=== PATIENT | male | born 1950 | race Caucasian/White ===

== ENCOUNTER → 2019-11-03 | Outpatient (CLI) | payer MEDICARE, OTHER ==
[~2019-11-03] MED LIST: ASCO-262 PO; CTRZ10T PO; MULT-608 PO; NFR150C PO; OMEP40CA36 PO
--- NOTE | 2019-11-03 17:04 | Diagnostic Imaging Report ---
PROCEDURE: MRI left upper extremity without contrast. TECHNIQUE: Multiplanar, multisequence non contrast-enhanced MRI of the left upper extremity was accomplished. INDICATION: Left shoulder pain from a fall three to four weeks ago. History of left shoulder surgery years ago. COMPARISON: None. FINDINGS: No acute fracture or dislocation is seen in the left shoulder. Alignment appears normal. No significant joint effusion is seen. The supraspinatus and infraspinatus tendons demonstrate low-grade partial-thickness tearing at the articular surface distally. No high-grade partial-thickness or full-thickness tears are seen. The teres minor tendon is intact. The subscapularis tendon demonstrates minimal fraying at the cranial fibers, but otherwise appears intact. The long head of the biceps tendon appears split proximally, which may be due to a variant bifid tendon versus a longitudinal split tear. The glenoid labrum is suboptimally evaluated without intra-articular contrast, although there does appear to be tearing superiorly and posteriorly, which may be degenerative. No significant paralabral cyst is seen. There are moderate degenerative changes in the acromioclavicular joint. The acromion has a curved undersurface without hooking. The coracoclavicular and coracoacromial ligaments are intact. No focal muscular atrophy is seen. The soft tissues about the left shoulder are otherwise unremarkable. IMPRESSION: 1. Low-grade partial-thickness tearing of the left rotator cuff with no high-grade partial-thickness or full-thickness tears seen. 2. Appearance of the long head of the biceps tendon may be due to variant bifid anatomy versus a longitudinal split tear. 3. Moderate degenerative changes in the acromioclavicular joint. Dictated by: Dictated on workstation # [id number]
== END ==
LOC: RAD 15:19
PROVIDERS: ATTEND Orthopaedic Surgery
DX: S46.011A Strain of muscle(s) and tendon(s) of the rotator cuff of right shoulder, initial encounter (principal); M19.011 Primary osteoarthritis, right shoulder; W19.XXXA Unspecified fall, initial encounter; Z98.890 Other specified postprocedural states
CPT/HCPCS: 73221

== ENCOUNTER 2020-04-27 07:51 | Inpatient (IN) | payer MEDICARE, OTHER ==
--- NOTE | 2020-04-18 09:40 | HISTORY AND PHYSICAL ---
DATE OF SERVICE: ADMISSION HISTORY AND PHYSICAL DATE OF ADMISSION: 04/27/2020. This will be for inpatient admission on 04/27/2020 for left total knee arthroplasty. The patient will require regular inpatient admission due to comorbidities, gait abnormalities, need for physical therapy and for pain management. HISTORY OF PRESENT ILLNESS: The patient is a 70-year-old gentleman, who has undergone two recent left knee arthroscopies and these have shown severe degenerative changes in his medial compartment with progressive loss of medial joint space and articular surface. He has undergone treatment with physical therapy as well as anti-inflammatories and multiple injections. He reports continued pain, swelling, stiffness and marked activity limitations in the knee. Radiographs revealed severe medial and patellofemoral arthrosis and due to functional impairment and failure to improve with conservative measures, the patient has elected to proceed with surgical intervention. REVIEW OF SYSTEMS: No chest pain, no shortness of breath and no dysuria. PAST MEDICAL HISTORY: Anemia, fatigue, reflux and hypertension. PAST SURGICAL HISTORY: Appendectomy, left shoulder arthroscopy and left knee arthroscopy. FAMILY HISTORY: Noncontributory. PRIMARY CARE PROVIDER: Dr. Baum. MEDICATIONS: Iferex, Cialis, tamsulosin, Meloxicam, omeprazole, sucralfate and lisinopril. ALLERGIES: No known drug allergies. SOCIAL HISTORY: The patient denies alcohol and tobacco use. PHYSICAL EXAMINATION: GENERAL: The patient is well-developed, well-nourished, in no acute distress. HEENT: Normocephalic and atraumatic. Pupils are equal, round and reactive to light. Oropharynx is clear. NECK: Supple, no lymphadenopathy. LUNGS: Clear to auscultation bilaterally. HEART: Regular rate and rhythm. ABDOMEN: Soft, nontender and nondistended. EXTREMITIES: Left knee demonstrates varus alignment. He has mild effusion. There is no erythema or warmth. He is markedly tender along his medial joint line, has pain with patellar loading. Range of motion 0/3/120. The patient ambulates with an antalgic gait. IMPRESSION: Severe left knee osteoarthritis, unresponsive to conservative measures. PLAN: Left total knee arthroplasty. Risks, benefits, options, ramifications and recovery were discussed at length with the patient. He understands and wishes to proceed. Job ID: [id number] DocumentID: [id number] Dictated Date: 04/18/2020 09:11:45 Millinery Worker Date: 04/18/2020 09:39:49 Dictated By: RACHEAL DYSON MD
[~2020-04-27] VITALS: Ht 172 cm; Wt 79.5 kg
[2020-04-27] VITALS (12 sets, daily range): BP systolic 120–156; BP diastolic 70–96
[~2020-04-27 07:51] MED LIST changes: +ASCO500C17 PO; +CHOL20003 PO; +FERR-84 PO; +LIDOCAINE PF 2% 5 ML (XYLOCAINE) VIAL ONE; +LISI10TA2 PO; +LORA10TA7 PO; +MELO15TA39 PO; +MIDAZOLAM 2 MG/2 ML (VERSED) VIAL ONE; +MULT-1136 PO; +OMEP20CA18 PO; +ROPIVACAINE 5MG/ML 30ML VIAL ONE; +ZINC50TA51 PO; +fentaNYL INJECTION 100 MCG/2 ML AMP ONE
[2020-04-27] MEDS ORDERED: CEFUROXIME INJECTION 1,500 MG in WATER (STERILE) FOR INJECTION 15 ML IV ONE (08:00)
[2020-04-27] MEDS ORDERED: INTRA-ARTICULAR IU ONE ×5 (08:00)
[2020-04-27] MEDS: LACTATED RINGERS 1,000 ML IV PRN ×2 (08:11→10:25)
[2020-04-27] MEDS ORDERED: LIDOCAINE PF 2% 5 ML (XYLOCAINE) VIAL ONE (08:32)
[2020-04-27] MEDS ORDERED: MIDAZOLAM 2 MG/2 ML (VERSED) VIAL ONE (08:32)
[2020-04-27] MEDS ORDERED: NEOSTIGMINE 3 MG/3 ML VIAL ONE (08:32)
[2020-04-27] MEDS ORDERED: proPOfol 200 MG/20 ML (DIPRIVAN) VIAL IV ONE (08:32)
[2020-04-27] MEDS ORDERED: ONDANSETRON 4 MG/2 ML (SDV) Z0FRAN ONE (08:32)
[2020-04-27] MEDS ORDERED: SEVOFLURANE (ULTANE) 15 ML INHAL SOLN ONE ×6 (08:32→10:48)
[2020-04-27] MEDS ORDERED: ROCURONIUM 10 MG/ML 5 ML SYRINGE IV ONE (08:32)
[2020-04-27] MEDS ORDERED: GLYCOPYRROLATE 0.2 MG/ML (ROBINUL) 2 ML VIAL ONE (08:32)
[2020-04-27] MEDS ORDERED: fentaNYL INJECTION 100 MCG/2 ML AMP ONE ×2 (08:33→10:25)
--- NOTE | 2020-04-27 09:12 | Progress Note-Pre Operative ---
Pre-Operative Progress Note H&P Reviewed The H&P was reviewed, patient examined and no changes noted. Date Seen by Provider: Apr 27, 2020 Time Seen by Provider: 07:25 Date H&P Reviewed: Apr 27, 2020 Time H&P Reviewed: 07:22 Pre-Operative Diagnosis: left knee primary osteoarthritis RACHEAL DYSON MD Apr 27, 2020 09:12
--- NOTE | 2020-04-27 09:14 | Progress Note-Post Operative ---
Post-Operative Progess Note Surgeon (s)/Implementation Coordinator (s) Surgeon RACHEAL DYSON MD Implementation Coordinator: Jordy Ibarra Pre-Operative Diagnosis left knee primary osteoarthritis Post-Operative Diagnosis left knee primary osteoarthritis Procedure & Operative Findings Date of Procedure 04/27/20 Procedure Performed/Findings left total knee arthroplasty Anesthesia Type GETA Estimated Blood Loss Estimated blood loss (mL): minimal Specimens/Packing Specimens Removed none Packing: none RACHEAL DYSON MD Apr 27, 2020 09:14
[2020-04-27] MEDS ORDERED: morphine PCA 100 MG/100 ML BAG IV PRN (09:15)
[2020-04-27] MEDS ORDERED: diphenhydrAMINE 50 MG/ML INJ (BENADRYL) IVP PRN (09:15)
[2020-04-27] MEDS ORDERED: ONDANSETRON 4 MG/2 ML (SDV) Z0FRAN IVP PRN ×3 (09:15→11:30)
--- NOTE | 2020-04-27 09:17 | D/C HH Face to Face Order ---
D/C Face to Face Orders Reconcile Patient Problems Problems Reviewed?: Yes Instructions for Patient [facility], Patient Instructions/FollowUp: three weeks Physician to follow Patient: three weeks Discharge Diet for Home: Regular Diet Patient Data-Allergies,Ht & Wt Patient Allergies: Coded Allergies: No Known Drug Allergies (Unverified , 04/14/20) Home Health Need/Face to Face Date of Face to Face: Apr 27, 2020 Clinical Findings: Instability, Muscle weakness, Pain with ambulation, Unsteady gait I have seen Pt [id number]: Yes Discharged To: Home Diagnosis/Conditions: left total knee arthroplasty Patient is Homebound due to: Ray fall risk due to instabilty, Muscle weakness, Pain w/ambulation Homebound Status Due to the above stated illness, injury or surgical procedure (medical condition or diagnosis) and associated clinical findings, the patient is homebound because of his/her inability to leave home except with aid of a supportive device and/or person AND leaving the home requires a considerable and taxing effort or is medically contraindicated. Pt req the following assistanc: Walker Home Health Nursing Orders Home Health Services Order: Physical Therapy-Evaluate & Treat DC knee tio and apply steri strips 05/11/20 Therapy Orders Therapy Orders: Physical Therapy, PT to assess for OT Therapy Specific Orders: Eval assistive deivces, Teach enviro modifications/safety, Gait training, Increase strength/endurance, Provider maintenance therapy, Restore ROM Certify Stmt I certify that this patient is under my care and that I, a nurse practitioner or a physician; a medical record assistant working with me, had a face to face encounter that - meets the physician face to face encounter requirements with this patient as dated. RACHEAL DYSON MD Apr 27, 2020 09:17
[2020-04-27] MEDS ORDERED: MEPERIDINE (DEMEROL) INJ 50 MG/ML IVP ONE (10:00)
[2020-04-27] MEDS ORDERED: morphine INJ 10 MG/ML 1ML (SYR OR VIAL) IVP ONE (10:00)
[2020-04-27] MEDS ORDERED: fentaNYL INJECTION 100 MCG/2 ML AMP IVP ONE (10:00)
[2020-04-27] MEDS ORDERED: HYDROmorphone 2 MG/ML VIAL (DILAUDID) IV ONE (11:30)
--- NOTE | 2020-04-27 12:11 | Diagnostic Imaging Report ---
INDICATION: Postoperative. TECHNIQUE: 2 post operative radiographs of the left knee CORRELATION STUDY: None FINDINGS: There are postsurgical changes of a total knee arthroplasty. Alignment is anatomic. Installed hardware appearing unremarkable. Overlying soft tissue gas collections and skin tio are present. IMPRESSION: Postsurgical changes of a left knee replacement. Dictated by: Dictated on workstation # [id number]
--- NOTE | 2020-04-27 12:22 | NUR ---
Patient arrived to floor at this time post L Total Knee. Bedside report received from PERLA Alberto. I agree with previous RN's assessment and will assume care at this time.
--- NOTE | 2020-04-27 12:49 | Progress Note ---
Standard Progress Note Progress Notes/Assess & Plan Date Seen by a Provider: Apr 27, 2020 Time Seen by a Provider: 11:30 Progress/Assessment & Plan post op check denies paresthesias radiographs--HW well positioned without fracture LLE--2 plus DP pulse with brisk cap refill. Intact sensation throughout to light touch. Intact DF and PF of toes and ankle s/p LTKA mobilize as able RACHEAL DYSON MD Apr 27, 2020 12:49
[2020-04-27] MEDS: NS IV 1000 ML 1,000 ML IV SCH (13:29)
--- NOTE | 2020-04-27 14:14 | Physical Therapy Evaluation ---
PT Evaluation-General Medical Diagnosis Admission Date Apr 27, 2020 at 07:51 Medical Diagnosis: left TKA Onset Date: Apr 27, 2020 Therapy Diagnosis Therapy Diagnosis: impaired mobility, ROM Precautions Precautions/Isolations: Standard Precautions Weight Bear Status Per Dr. Hobbs, patient should not flex left knee past 90 degrees Referral Physician: Fred Reason for Referral: Evaluation/Treatment Medical History Additional Medical History PAST MEDICAL HISTORY: Anemia, fatigue, reflux and hypertension. PAST SURGICAL HISTORY: Appendectomy, left shoulder arthroscopy and left knee arthroscopy. Reviewed History: Yes Social History Home: Single Level Current Living Status: Alone Entry Into Home: Stairs With Railing PT Steps Into Home: 6 Prior Prior Level of Function SCALE: Activities may be completed with or without assistive devices. 0-Ogwezpxxnt-mukbqev completes the activity by him/herself with no assistance from a helper. 5-Set-up or Clean-up Assistance-helper sets up or cleans up; patient completes activity. [place] assists only prior to or following the activity. 4-Supervision or Touching Assistance-helper provides verbal cues and/or touching/steadying and/or contact guard assistance as patient completes activity. Assistance may be provided throughout the activity or intermittently. 3-Partial/Moderate Assistance-helper does LESS THAN HALF the effort. [place] lifts, holds or supports trunk or limbs, but provides less than half the effort. 2-Substantial/Maximal Assistance-helper does MORE THAN HALF the effort. [place] lifts or holds trunk or limbs and provides more than half the effort. 8-Wjfjyrqgo-jblhiv does ALL the effort. Patient does none of the effort to complete the activity. Or, the assistance of 2 or more helpers is required for the patient to complete the activity. If activity was not attempted, code reason: 7-Patient Refused. 9-Not Applicable-not attempted and the patient did not perform the activity before the current illness, exacerbation or injury. 10-Not Attempted due to Environmental Limitations-(lack of equipment, weather restraints, etc.). 88-Not Attempted due to Medical Conditions or Safety Concerns. Bed Mobility: 6 Transfers (B,C,W/C): 6 Gait: 6 Stairs: 6 Indoor Mobility (Ambulation): Independent Stairs: Independent PT Evaluation-Current Subjective Patient in bed pre tx, agrees to PT, has 8/10 pain in left knee. Pt/Family Goals to be independent at home Objective Patient Orientation: Person, Place, Situation Attachments: Polar Pack, IV ROM/Strength ROM Lower Extremities Left knee flexion 80 degrees, extension +4 degrees Sensory Vision: Functional Hearing: Functional Sensation Right Lower Extremit: Intact Sensation Left Lower Extremity: Intact Transfers Roll Left to Right (QC): 6 Sit to Lying (QC): 3 Lying to Sitting/Side of Bed(Q: 4 Sit to Stand (QC): 4 Chair/Yua-tk-Cfktm Xfer(QC): 4 Patient performs bed mobility with independence, supine to sit with SBA, sit to supine with min assist, sit to stand CGA, transfers CGA Gait Does the Patient Walk?: Yes Mode of Locomotion: Walk Anticipated Mode of Locomotion: Walk Walk 10 feet (QC): 4 Distance: 30' Gait Assistive Device: FWW Comments/Gait Description Patient ambulated 30' with a rolling walker with CGA, no dizziness or nausea, decreased left knee flexion, antalgic, good step through Balance Sitting Static: Normal Sitting Dynamic: Normal Standing Static: Good Standing Dynamic: Good Treatment LLE supine total knee protocol x10 (AP, QS, HS, SAQ, SLR), CPM donned and adjusted to leg and set to 60/-2 Assessment/Needs Patient has impaired mobility, strength, endurance, ROM. Patient in bed post tx with nurse call, phone, tray, all needs met, CPM donned and polar care on. Rehab Potential: Fair PT Brick Off Bearer Goals Brick Off Bearer Goals PT Penitentiary Goals Time Frame: May 04, 2020 Roll Left & Right (QC): 6 Sit to Lying (QC): 6 Lying-Sitting on Side/Bed(QC): 6 Sit to Stand (QC): 4 Chair/Afl-ee-Ozpkz Xfer(QC): 4 Walk 10 feet (QC): 4 Walk 50ft with 2 Turns (QC): 4 Walk 150 ft (QC): 4 PT Plan Problem List Problem List: Activity Tolerance, Functional Strength, Safety, Balance, Gait, Transfer, Bed Mobility, ROM Treatment/Plan Treatment Plan: Continue Plan of Care Treatment Plan: Bed Mobility, Education, Functional Activity Shaista, Functional Strength, Gait, Safety, Therapeutic Exercise, Transfers Treatment Duration: May 04, 2020 Frequency: 11 times per week Estimated Hrs Per Day: .25 hour per day Patient and/or Family Agrees t: Yes Safety Risks/Education Patient Education: Gait Training, Transfer Techniques, Reviewed Use of Ice, Correct Positioning, Safety Issues Teaching Recipient: Patient Teaching Methods: Demonstration, Discussion Response to Teaching: Reinforcement Needed Discharge Recommendations Plan Patient will perform bed mobility and transfer training, balance and endurance training, functional strengthening, stair training, gait training, and education, to improve functional mobility and independence at home. Therapy Discharge Recommendati: Home & Family Time/GCodes Time In: 1335 Time Out: 1400 Total Billed Treatment Time: 25 Total Billed Treatment 1 visit EVL 10' FA 15' SMITA TALBOT PT Apr 27, 2020 14:14
--- NOTE | 2020-04-27 17:36 | NUR ---
Pt lives locally with his Lynne. His sons are both physicians and live out of state. His will be his primary caregiver. He will need physician order for front wheel walker and has chose [facility] for home l therapies.Will assist with continued care needs.
[2020-04-27] MEDS: CEFUROXIME INJECTION 750 MG in WATER (STERILE) FOR INJECTION 10 ML IV SCH (17:41)
--- NOTE | 2020-04-27 19:26 | OPERATIVE REPORT ---
DATE OF SERVICE: 04/27/2020 PREOPERATIVE DIAGNOSIS: Left knee primary osteoarthritis. POSTOPERATIVE DIAGNOSIS: Left knee primary osteoarthritis. PROCEDURE: Left total knee arthroplasty. SURGEON: Rolando Dyson MD HOLLOW HANDLE BENCH WORKER: Jordy Ibarra, who assisted throughout the procedure and closed the incision. ANESTHESIA: General endotracheal by Jordy Robertson CRNA. TOURNIQUET TIME: Approximately 75 minutes at 300 mmHg. ESTIMATED BLOOD LOSS: Minimal. DRAINS: None. COMPLICATIONS: None. POSTOPERATIVE PLAN: Routine total knee arthroplasty protocol. The patient was transferred to the recovery room awake and in stable condition. MATERIALS: MicroPort cemented size 5 femur, cemented size 5 tibia with 10 mm insert and cemented size 32 patellar button. STATEMENT OF MEDICAL NECESSITY: The patient is a 70-year-old gentleman with longstanding progressive left knee pain. He has undergone treatment with arthroscopies, injections, rest, activity modifications, anti-inflammatories without relief. He had progressive loss of medial joint space and patellofemoral joint spaces and due to functional impairment and failure to improve with conservative measures, the patient elected to proceed with surgical intervention. DESCRIPTION OF PROCEDURE: After risks and benefits of procedure were discussed and questions were answered, informed consent was signed and placed on chart, the operative site was confirmed in the preoperative holding area initialed by the surgeon. The patient was then transferred to the operating room and after adequate levels of general endotracheal anesthetic were obtained, a timeout was called, confirming the operative site. Left lower extremity was prepped and draped in the usual sterile fashion with the leg elevated and the knee flexed, tourniquet was inflated to 300 mmHg. Standard anterior approach was utilized. Hemostasis was obtained with cautery. Medial parapatellar arthrotomy was performed leaving 1 cm cuff on the patella for later reattachment. A portion of the fat pad was resected and subperiosteal release was performed on the proximal medial tibia being careful to stay on the bony surface. The ACL was resected. The intramedullary guide was passed into the femur. The distal cutting block was placed and the femur sized to a size 5, the 5 cutting block was placed parallel to the epicondylar axis and cuts were made from posterior to anterior. Subperiosteal release was then carefully performed on the posterior femur, being careful to stay on the bony surface with the knee flexed. The intramedullary guide was then passed into the tibia. The drop neena transected the intermalleolar axis. The cut was made. The 5 baseplate was placed and drop neena again transected the intermalleolar axis. the baseplate was pinned into position. This was prepared with the drill and keel punch. The femoral trial was placed and the trochlear cut was made. The patella was then prepared by resecting 10 mm off the undersurface using the freehand technique. There was calcification of the quadriceps insertion. This was excised, which left the quadriceps thin. Therefore, two drill holes were placed through the patella and sutures were placed in a [place] fashion through the proximal aspect of the quadriceps tendon. These were then passed through the patellar tunnels and tied distally at the finned quadriceps site. In addition, a mattress suture was passed full thickness into the retinaculum on the proximal patella. The trials were inserted with 10 mm insert. Full extension was easily obtained under 20 degrees of flexion with gravity was easily obtained. The patella tracked well. There was no anterior/posterior or medial/lateral laxity in flexion or extension. The trials were removed. The joint was irrigated with pulse lavage. The periarticular block was placed in the posterior capsule, medial and lateral retinaculum, extensor mechanism and subcutaneous tissues. The bone ends were irrigated and dried and the tibial baseplate was cemented into position. Excessive cement was removed, the superior surface was irrigated and dried and the polyethylene insert was placed. The distal femur was irrigated and dried and the femoral prosthesis was cemented into position. Excessive cement was removed. The knee was brought into full extension until cement had cured. The undersurface of patella was irrigated and dried. The patellar button was cemented into position. Excessive cement was removed. Once the cement had cured, the knee was taken through range of motion. The quadriceps was stable. The patella tracked well. There was no anterior/posterior laxity in flexion or extension or medial/lateral laxity in flexion or extension. Full extension was easily obtained, 120 degrees of flexion with gravity was easily obtained. The joint was further irrigated with pulse lavage. Arthrotomy was closed with #2 Tev[place] in lekezm-ti-xxwml fashion. The knee was flexed. The repair was stable with no undue tension at the repair site. Subcutaneous tissues were irrigated using a total of 6 liters throughout the procedure. 0 Vicryl was used to deep subcutaneous tissue, 2-0 Vicryl for the superficial subcutaneous tissue, tio used on the skin. A soft dressing was applied. Tourniquet was deflated. The patient was transferred to the recovery room awake and in stable condition. Job ID: [id number] DocumentID: [id number] Dictated Date: 04/27/2020 11:15:12 Embroidery Worker Date: 04/27/2020 19:26:15 Dictated By: ROLANDO DYSON MD
[2020-04-27] MEDS: SENNA W/DOCUSATE (SENOKOT S) TABLET PO SCH (21:04)
[2020-04-27] MEDS: oxyCODONE/APAP 5/325MG (PERCOCET 5) TABLET PO PRN (22:29)
[2020-04-28 00:28] VITALS: BP 145/72
[2020-04-28] MEDS: CEFUROXIME INJECTION 750 MG in WATER (STERILE) FOR INJECTION 10 ML IV SCH (00:34)
[2020-04-28] MEDS: ACETAMINOPHEN 325 MG TABLET PO PRN ×2 (00:34→19:47)
[2020-04-28] MEDS: NS IV 1000 ML 1,000 ML IV SCH ×3 (00:37→13:09)
[2020-04-28 05:44] LABS: HEMOGLOBIN 11.7 g/dL (13.3-17.7)
--- NOTE | 2020-04-28 07:10 | Anesthesia-General Post-Op ---
General Patient Condition Mental Status/LOC: Same as Preop Cardiovascular: Satisfactory Nausea/Vomiting: Absent Respiratory: Satisfactory Pain: Controlled Complications: Absent Post Op Complications Complications None Follow Up Care/Instructions Patient Instructions None needed. Anesthesia/Patient Condition Patient Condition Patient is doing well, no complaints, stable vital signs, no apparent adverse anesthesia problems. No complications reported per nursing. JOHANNA GARRISON CRNA Apr 28, 2020 07:10
[2020-04-28 08:00] VITALS: BP 120/61
[2020-04-28] MEDS: MULTIVIT W/MINERALS TAB (THERAGRAN M) PO SCH (08:01)
--- NOTE | 2020-04-28 08:10 | Progress Note ---
Standard Progress Note Progress Notes/Assess & Plan Date Seen by a Provider: Apr 28, 2020 Time Seen by a Provider: 08:09 Progress/Assessment & Plan post op check denies paresthesias radiographs--HW well positioned without fracture LLE--2 plus DP pulse with brisk cap refill. Intact sensation throughout to light touch. Intact DF and PF of toes and ankle s/p LTKA mobilize as able Final Diagnosis having pain Vital Signs Date Time Temp Pulse Resp B/P (MAP) Pulse Ox O2 Delivery O2 Flow Rate FiO2 04/28/20 01:04 37.0 04/28/20 00:34 37.9 04/28/20 00:28 37.9 104 20 145/72 (96) 94 Room Air 04/27/20 21:10 Room Air 04/27/20 20:00 36.5 102 16 128/71 (90) 91 Room Air 04/27/20 16:00 36.3 104 16 147/78 (101) 95 Room Air 04/27/20 13:31 18 04/27/20 12:20 37.1 20 136/82 (100) 98 Room Air 04/27/20 12:20 Room Air 04/27/20 12:19 36.1 94 16 120/70 (87) 96 Room Air 04/27/20 12:10 Room Air 04/27/20 12:10 37.1 20 136/82 (100) 98 Room Air 04/27/20 12:00 21 135/83 (100) 97 Room Air 04/27/20 11:55 Room Air 04/27/20 11:50 14 143/79 (100) 100 Room Air 04/27/20 11:40 OxyMask 2 04/27/20 11:40 18 136/82 (100) 100 OxyMask 2 04/27/20 11:30 20 153/81 (105) 99 OxyMask 5 04/27/20 11:25 OxyMask 5 04/27/20 11:20 16 149/96 (113) 100 OxyMask 5 04/27/20 11:11 36.2 14 156/74 (101) 100 OxyMask 8 04/27/20 11:11 OxyMask 8 I & O 04/28/20 07:00 Intake Total 1655 ml Output Total 480 ml Balance 1175 ml Laboratory Tests Test 04/27/20 16:42 04/28/20 05:16 Range/Units Glucometer 143 H 70-110 MG/DL Creatinine 0.86 0.60-1.30 MG/DL LLE--dressing intact. No calf tenderness. NVI s/p LTKA mobilize with PT/OT RACHEAL DYSON MD Apr 28, 2020 08:09
[2020-04-28] MEDS: ASPIRIN E.C. 81 MG (ECOTRIN) TAB PO SCH (08:52)
[2020-04-28] MEDS: ENOXAPARIN 30 MG/0.3 ML (LOVENOX) SYR SC SCH ×2 (08:53→19:56)
[2020-04-28] MEDS: SENNA W/DOCUSATE (SENOKOT S) TABLET PO SCH ×2 (08:53→19:56)
[2020-04-28] MEDS: oxyCODONE/APAP 5/325MG (PERCOCET 5) TABLET PO PRN ×3 (08:56→19:46)
--- NOTE | 2020-04-28 10:17 | Occupational Therapy Eval ---
OT Evaluation-General/PLF Medical Diagnosis Admission Date Apr 27, 2020 at 07:51 Medical Diagnosis: left TKA Onset Date: Apr 27, 2020 Therapy Diagnosis Therapy Diagnosis: Decreased ADL skills Precautions Precautions/Isolations: Fall Prevention, Standard Precautions Weight Bear Status Weight Bearing Restriction: Weight Bearing/Tolerated Referral Physician: jonathon Referral Reason: Activity Tolerance, Self Care, Evaluation/Treatment, Strengthening/ROM Medical History Pertinent Medical History: HTN Additional Medical History Anemia, refluz, appendectomy, left shoulder arthroscopy Reviewed History: Yes Social History Home: Single Level Current Living Status: Spouse Entry Into Home: Stairs With Railing Steps Into Home: 6 ADL-Prior Level of Function SCALE: Activities may be completed with or without assistive devices. 8-Ewynrgdiho-kiyxeku completes the activity by him/herself with no assistance from a helper. 5-Set-up or Clean-up Assistance-helper sets up or cleans up; patient completes activity. [place] assists only prior to or following the activity. 4-Supervision or Touching Assistance-helper provides verbal cues and/or touching/steadying and/or contact guard assistance as patient completes activity. Assistance may be provided throughout the activity or intermittently. 3-Partial/Moderate Assistance-helper does LESS THAN HALF the effort. [place] lifts, holds or supports trunk or limbs, but provides less than half the effort. 2-Substantial/Maximal Assistance-helper does MORE THAN HALF the effort. [place] lifts or holds trunk or limbs and provides more than half the effort. 4-Pomwgsjdl-xquptx does ALL the effort. Patient does none of the effort to complete the activity. Or, the assistance of 2 or more helpers is required for the patient to complete the activity. If activity was not attempted, code reason: 7-Patient Refused. 9-Not Applicable-not attempted and the patient did not perform the activity before the current illness, exacerbation or injury. 10-Not Attempted due to Environmental Limitations-(lack of equipment, weather restraints, etc.). 88-Not Attempted due to Medical Conditions or Safety Concerns. ADL PLOF Comments Pt. verbalizes that he is independent typically with all ADLs. Self Care: Independent Functional Cognition: Independent DME/Equipment Comments Pt. verbalizes that he has no AE at home, including a walker. Drive Self: Yes OT Current Status Subjective Pt. begins to report feeling faint while ambulating, as well as reports significant pain in left knee. 03/05. Nursing notified. BP is taken and pain meds are given. Mental Status/Objective Patient Orientation: Person, Place ADL-Treatment Shower/Bathe Self (QC): 3 (Pt. had just completed sponge bath in bathroom after set up from nursing when OT entered room. However, he was not able to wash LE. OT did this for him at bed level.) Lower Body Dressing (QC): 5 On/Off Footwear (QC): 2 (OT donned CARMEN hose and SCD's while in bed. Clinical judgement indicates that pt. unable to don slipper socks due to pain.) Other Treatments Pt. in bathroom when OT entered room. Opens door and is ambulating with walker back to bed. OT provides SBA, and pt. begins reporting significant pain in left knee. He also reports feeling "faint" and so OT calls for nurse and assists pt. to bed. Pt. requires mod assistance for sit-supine. BP taken and is 105/57. Nursing requests for HOB to not be elevated due to BP. Pt. given pain medication. OT applies CARMEN hose at bed level but pt. yelling out in pain with any movement. OT careful and encourages pt. to look at leg while hose is being applied, so he can anticipate movements. OT applies SCDs and attempts to position left LE to best comfort level. Pt. unable to get comfortable, and so after leaving, PT is consulted as they are going to assess him next. They are notified as well about polar pack. Pt. has all needs met, and OT will continue to assess and work with pt. to increase ADL skills and decrease pain during functional tasks. Education OT Patient Education: Correct positioning, Modified ADL techniques, Progress to norman Goal/Update tx plan, Purpose of tx/functional activities, Reviewed precautions, Rehab process, Transfer techniques Teaching Recipient: Patient Teaching Methods: Demonstration, Discussion Response to Teaching: Verbalize Understanding, Return Demonstration OT [facility]ci Goals Shift Stacker Goals Time Frame: May 05, 2020 Eating (QC): 6 Oral Hygiene (QC): 6 Toileting Hygiene (QC): 6 Shower/Bathe Self (QC): 5 Upper Body Dressing (QC): 6 Lower Body Dressing (QC): 6 On/Off Footwear (QC): 6 Additional Goals: 1-Demonstrate ADL Tasks, 2-Verbalize Understanding, 3- ImproveStrength/Shaista 1=Demonstrate adherence to instructed precautions during ADL tasks. 2=Patient will verbalize/demonstrate understanding of assistive devices/modifications for ADL. 3=Patient will improve strength/tolerance for activity to enable patient to perform ADL's. OT Education/Plan Problem List/Assessment Assessment: Decreased Activ Tolerance, Dependent Transfers, Impaired Bed Mobility, Impaired Funct Balance, Impaired I ADL's, Impaired Self-Care Skills Discharge Recommendations Plan/Recommendations: Continue POC Therapy Discharge Recommendati: Home & Family Equpiment Recommendations-D/C: Hip Kit Treatment Plan/Plan of Care Treatment,Training & Education: Yes Patient would benefit from OT for education, treatment and training to promote independence in ADL's, mobility, safety and/or upper extremity function for ADL's. Plan of Care: ADL Retraining, Functional Mobility Treatment Duration: May 05, 2020 Frequency: 5 times per week Estimated Hrs Per Day: .5 hour per day Agreement: Yes Rehab Potential: Fair Time/GCodes Start Time: 08:35 Stop Time: 09:00 Total Time Billed (hr/min): 25 Billed Treatment Time 1, EVM x 10minutes, ADL x 15minutes LUDY EDWARDS OT Apr 28, 2020 10:17
--- NOTE | 2020-04-28 10:41 | Physical Therapy Daily Note ---
PT Daily Note-Current Subjective Patient c/o 10/10 left knee pain but agrees to PT. Pain Numeric Pain Scale: 10-Worst Possible Pain Location: Left Location Body Site: Knee Pain Description: Acute Comment: FOOD CASHIER and pain pill Mental Status Patient Orientation: Normal For Age Attachments: IV Transfers SCALE: Activities may be completed with or without assistive devices. 1-Evvnkjystw-hcaeolc completes the activity by him/herself with no assistance from a helper. 5-Set-up or Clean-up Assistance-helper sets up or cleans up; patient completes activity. [place] assists only prior to or following the activity. 4-Supervision or Touching Assistance-helper provides verbal cues and/or touching/steadying and/or contact guard assistance as patient completes activity. Assistance may be provided throughout the activity or intermittently. 3-Partial/Moderate Assistance-helper does LESS THAN HALF the effort. [place] lifts, holds or supports trunk or limbs, but provides less than half the effort. 2-Substantial/Maximal Assistance-helper does MORE THAN HALF the effort. [place] lifts or holds trunk or limbs and provides more than half the effort. 4-Ohtouyltn-wwcuzp does ALL the effort. Patient does none of the effort to complete the activity. Or, the assistance of 2 or more helpers is required for the patient to complete the activity. If activity was not attempted, code reason: 7-Patient Refused. 9-Not Applicable-not attempted and the patient did not perform the activity before the current illness, exacerbation or injury. 10-Not Attempted due to Environmental Limitations-(lack of equipment, weather restraints, etc.). 88-Not Attempted due to Medical Conditions or Safety Concerns. Lying to Sitting/Side of Bed(Q: 3 Sit to Stand (QC): 4 Chair/Acm-ti-Pcxuz Xfer(QC): [address] Hobbs, patient should not flex left knee past 90 degrees Gait Training Does the Patient Walk?: Yes Distance: 300' Walk 10 feet (QC): 4 Walk 50 ft with 2 Turns(QC): 4 Walk 150 ft (QC): 4 Gait Assistive Device: FWW slow, steady, antalgic Exercises Supine Ex: Ankle pumps, Quad Set, Heel Slides (slight) Supine Reps: 12 Seated Therapy Exercises: Ankle pumps, Long arc quads Seated Reps: 12 Assessment PT did lightly massage left LE to decrease pain. Patient able to perform all skills as above without difficulty. PT Senior Living Goals Senior Living Goals PT Siderographist Goals Time Frame: May 04, 2020 Roll Left & Right (QC): 6 Sit to Lying (QC): 6 Lying-Sitting on Side/Bed(QC): 6 Sit to Stand (QC): 4 Chair/Hqq-dw-Jgsta Xfer(QC): 4 Walk 10 feet (QC): 4 Walk 50ft with 2 Turns (QC): 4 Walk 150 ft (QC): 4 PT Plan Treatment/Plan Treatment Plan: Continue Plan of Care Treatment Plan: Bed Mobility, Education, Functional Activity Shaista, Functional Strength, Gait, Safety, Therapeutic Exercise, Transfers Treatment Duration: May 04, 2020 Frequency: 11 times per week Estimated Hrs Per Day: .25 hour per day Patient and/or Family Agrees t: Yes Time/GCodes Time In: 906 Time Out: 940 Total Billed Treatment Time: 34 Total Billed Treatment 1 visit EX 19 min GT 15 min ARMAAN YANCEY PT Apr 28, 2020 10:41
[2020-04-28 12:00] VITALS: BP 121/68
[2020-04-28] MEDS ORDERED: CYCLOBENZAPRINE 10 MG (FLEXERIL) TAB PO PRN (14:00)
--- NOTE | 2020-04-28 14:27 | Physical Therapy Daily Note ---
PT Daily Note-Current Subjective Patient reports he ambulated with nursing staff 30 min. prior to PT arrival. Agrees to exercises. Transfers SCALE: Activities may be completed with or without assistive devices. 8-Nacedztmev-knzmdpg completes the activity by him/herself with no assistance from a helper. 5-Set-up or Clean-up Assistance-helper sets up or cleans up; patient completes activity. [place] assists only prior to or following the activity. 4-Supervision or Touching Assistance-helper provides verbal cues and/or touching/steadying and/or contact guard assistance as patient completes activity. Assistance may be provided throughout the activity or intermittently. 3-Partial/Moderate Assistance-helper does LESS THAN HALF the effort. [place] lifts, holds or supports trunk or limbs, but provides less than half the effort. 2-Substantial/Maximal Assistance-helper does MORE THAN HALF the effort. [place] lifts or holds trunk or limbs and provides more than half the effort. 2-Etzbvrppt-ugkwjh does ALL the effort. Patient does none of the effort to complete the activity. Or, the assistance of 2 or more helpers is required for the patient to complete the activity. If activity was not attempted, code reason: 7-Patient Refused. 9-Not Applicable-not attempted and the patient did not perform the activity before the current illness, exacerbation or injury. 10-Not Attempted due to Environmental Limitations-(lack of equipment, weather restraints, etc.). 88-Not Attempted due to Medical Conditions or Safety Concerns. Sit to Lying (QC): 3 Sit to Stand (QC): 5 Chair/Hov-yu-Uwmyq Xfer(QC): [address] Hobbs, patient should not flex left knee past 90 degrees Gait Training Does the Patient Walk?: Yes Distance: 8' Gait Assistive Device: FWW Exercises Supine Ex: Ankle pumps, Quad Set, Heel Slides, Straight leg raise Supine Reps: 12 Assessment CPM 0-50 degrees with polar pack in place. Patient tolerated treatment well. PT Exploration Driller Goals Fpc Goals PT Exploration Driller Goals Time Frame: May 04, 2020 Roll Left & Right (QC): 6 Sit to Lying (QC): 6 Lying-Sitting on Side/Bed(QC): 6 Sit to Stand (QC): 4 Chair/Weu-na-Lbxek Xfer(QC): 4 Walk 10 feet (QC): 4 Walk 50ft with 2 Turns (QC): 4 Walk 150 ft (QC): 4 PT Plan Treatment/Plan Treatment Plan: Continue Plan of Care Treatment Plan: Bed Mobility, Education, Functional Activity Shaista, Functional Strength, Gait, Safety, Therapeutic Exercise, Transfers Treatment Duration: May 04, 2020 Frequency: 11 times per week Estimated Hrs Per Day: .25 hour per day Patient and/or Family Agrees t: Yes Time/GCodes Time In: 1325 Time Out: 1343 Total Billed Treatment Time: 18 Total Billed Treatment 1 visit EX 18 min ARMAAN YANCEY PT Apr 28, 2020 14:27
--- NOTE | 2020-04-28 14:45 | NUR ---
Pt is Rastafari. Orthodontist provided prayer and Communion.
[2020-04-28 15:35] VITALS: BP 162/83
--- NOTE | 2020-04-28 16:54 | NUR ---
I HAVE REVIEWED CHARTING OF JESSICA RN PRECEPTOR AND AGREE WITH DOCUMENTATION.
--- NOTE | 2020-04-28 17:20 | NUR ---
Arrangements completed for pt discharge. Faxed physician orders to [facility] and to [facility] for front wheel walker which will be delivered in the morning.will follow
[2020-04-28 19:11] VITALS: BP 154/75
[2020-04-28 22:50] VITALS: BP 158/79
[2020-04-29] MEDS: NS IV 1000 ML 1,000 ML IV SCH (01:40)
[2020-04-29] MEDS: oxyCODONE/APAP 5/325MG (PERCOCET 5) TABLET PO PRN ×2 (02:19→08:17)
[2020-04-29 04:11] VITALS: BP 149/88
--- NOTE | 2020-04-29 05:38 | DISCHARGE SUMMARY ---
DATE OF SERVICE: DIAGNOSES: 1. Left knee primary osteoarthritis. 2. Reflux. 3. Hypertension. PROCEDURE: Left total knee arthroplasty. SUMMARY: The patient is a 70-year-old gentleman who underwent a left total knee arthroplasty on the day of admission. Postoperatively, he did very well. At time of discharge, his wound was clean and dry, had no calf tenderness. Negative Homans sign. He was tolerating his diet well and tolerating his pain with oral pain medication. CONDITION AT DISCHARGE: Good. DISCHARGE DIET: Regular. FOLLOWUP: Followup is in three weeks. Home physical therapy has been arranged. DISCHARGE MEDICATIONS: Home medications, aspirin one per day for 30 days and Percocet as needed for pain. Job ID: [id number] DocumentID: [id number] Dictated Date: 04/28/2020 19:18:23 Halftone Operator Date: 04/29/2020 05:37:39 Dictated By: RACHEAL DYSON MD
[2020-04-29] MEDS: MULTIVIT W/MINERALS TAB (THERAGRAN M) PO SCH (06:41)
--- NOTE | 2020-04-29 07:04 | Progress Note ---
Standard Progress Note Progress Notes/Assess & Plan Date Seen by a Provider: Apr 29, 2020 Time Seen by a Provider: 07:03 Progress/Assessment & Plan post op check denies paresthesias radiographs--HW well positioned without fracture LLE--2 plus DP pulse with brisk cap refill. Intact sensation throughout to light touch. Intact DF and PF of toes and ankle s/p LTKA mobilize as able Final Diagnosis feeling much better Vital Signs Date Time Temp Pulse Resp B/P (MAP) Pulse Ox O2 Delivery O2 Flow Rate FiO2 04/29/20 04:11 36.2 110 18 149/88 (108) 95 Nasal Cannula 2.00 04/28/20 22:50 37.5 111 20 158/79 (105) 95 Room Air 04/28/20 21:23 Room Air 04/28/20 20:17 37.3 04/28/20 19:47 38.0 04/28/20 19:11 38.0 118 20 154/75 (101) 95 Room Air 04/28/20 15:35 37.0 114 20 162/83 (109) 94 Room Air 04/28/20 12:00 36.2 98 16 121/68 (85) 94 Room Air 04/28/20 09:00 Room Air 04/28/20 08:00 37.0 99 16 120/61 (80) 95 Room Air I & O 04/29/20 07:00 Intake Total 3570 ml Output Total 350 ml Balance 3220 ml LLE--incision clean and dry. No calf tenderness. Neg Deedee's s/p LTKA DC home after PT today RACHEAL DYSON MD Apr 29, 2020 07:04
[2020-04-29] MEDS ORDERED: morphine INJ 4 MG/ML 1 ML (VIAL/SYRINGE) IVP PRN (07:15)
[2020-04-29 07:35] VITALS: BP 134/62
--- NOTE | 2020-04-29 07:37 | NUR ---
CADD SOFTWARE ENGINEER BACKEND DC'D WITH 35ML MS WASTED WITH MENDEL DIMAS RN WITNESS TO WASTE.
--- NOTE | 2020-04-29 08:11 | Consultation ---
History of Present Illness History of Present Illness Patient Consulted On(tia/time) 04/28/20 08:05 Date Seen by Provider: Apr 28, 2020 Time Seen by Provider: 08:45 Reason for Visit: medical management History of Present Illness 70 yo male admitted for left knee replacement due to worsening arthritis. I was consulted for medical management. Appears the surgery went well yesterday, no issues. This AM though patient was feeling dizzy and off balance. Nursing reports he is having more pain today and he has pushed his morphine button a couple times. Pt reports his knee pain worsened after he took a sponge bath. He also reports not getting much sleep last night. Allergies and Home Medications Allergies Coded Allergies: No Known Drug Allergies (Unverified , 04/14/20) Home Medications Ascorbic Acid 500 Mg Capsule, 500 MG PO DAILY, (Reported) Cholecalciferol (Vitamin D3) 50 Mcg Capsule, 50 MCG PO DAILY, (Reported) Ferrous Sulfate 325 Mg Tablet, 325 MG PO DAILY, (Reported) Lisinopril 10 Mg Tablet, 10 MG PO DAILY, (Reported) Loratadine 10 Mg Tablet, 10 MG PO DAILY, (Reported) Meloxicam 15 Mg Tablet, 15 MG PO DAILY, (Reported) Multivitamin 1 Each Tablet, 1 EACH PO DAILY, (Reported) Omeprazole 20 Mg Capsule.dr, 20 MG PO BID, (Reported) Zinc Amino Acid Chelate 50 Mg Tablet, 50 MG PO DAILY, (Reported) Patient Home Medication List Home Medication List Reviewed: Yes Past Wdhkuav-Tykewo-Bbsngz Hx Patient Social History Alcohol Use: Denies Use Recreational Drug Use: No Smoking Status: Never a Smoker Recent Foreign Travel: No Contact w/Someone Who Travel: No Recent Infectious Disease Expo: No Recent Hopitalizations: No Seasonal Allergies Seasonal Allergies: Yes Past Medical History Surgeries: Yes Respiratory: No Cardiac: Yes Neurological: No Sexually Transmitted Disease: No HIV/AIDS: No Genitourinary: No Gastrointestinal: No Musculoskeletal: Yes (LEFT KNEE) Arthritis Endocrine: No HEENT: Yes (GLASSES) Loss of Vision: Denies Hearing Impairment: Denies Cancer: No Psychosocial: No Integumentary: Yes (PRE SKIN CANCER) Blood Disorders: No Adverse Reaction/Blood Tranf: No (N/A) Review of Systems Review of Systems General: No Chills, No Night Sweats HEENT: No Head Aches, No Visual Changes Pulmonary: No Dyspnea, No Cough Cardiovascular: No: Chest Pain, Palpitations Gastrointestinal: No: Nausea, Vomiting, Abdominal Pain Genitourinary: No Dysuria Musculoskeletal: leg pain (left knee pain) Neurological: No: Weakness Physical Exam Vital Signs Vital Signs Date Time Temp Pulse Resp B/P (MAP) Pulse Ox O2 Delivery O2 Flow Rate FiO2 04/29/20 07:35 36.9 120 20 134/62 (86) 97 Room Air 04/29/20 04:11 36.2 110 18 149/88 (108) 95 Nasal Cannula 2.00 04/28/20 22:50 37.5 111 20 158/79 (105) 95 Room Air 04/28/20 21:23 Room Air 04/28/20 20:17 37.3 04/28/20 19:47 38.0 04/28/20 19:11 38.0 118 20 154/75 (101) 95 Room Air 04/28/20 15:35 37.0 114 20 162/83 (109) 94 Room Air 04/28/20 12:00 36.2 98 16 121/68 (85) 94 Room Air 04/28/20 09:00 Room Air I & O 04/29/20 07:00 Intake Total 3570 ml Output Total 350 ml Balance 3220 ml Height, Weight, BMI Height: '" Weight: lbs. oz. kg; 26.87 BMI Method: General Appearance: Moderate Distress (pain with moving left knee) HEENT: PERRL/EOMI Neck: Non Tender, Supple Respiratory: Chest Non Tender, Lungs Clear, Normal Breath Sounds, No Accessory Muscle Use Cardiovascular: Regular Rate, Rhythm, No Murmur Gastrointestinal: Non Tender, Soft Rectal: Deferred Extremity: Other (left knee wrapped) Neurologic/Psychiatric: Alert, Oriented x3 Skin: Warm/Dry Assessment/Plan Assessment/Plan Assessment and Plan S/p left knee replacement- -holding his blood pressure medication at this time due to low blood pressure this AM. His dizziness is likely related to pain and taking multiple doses of pain medication in an opioid naive patient. Will continue to monitor his blood pressure and assist him in getting up while in the hospital. Will follow along while admitted- Appreciate the consult. Problems: (1) Dizziness (2) HTN (hypertension) (3) Osteoarthritis of left knee ALIS CARDENAS MD Apr 29, 2020 08:11
[2020-04-29] MEDS: ASPIRIN E.C. 81 MG (ECOTRIN) TAB PO SCH (08:17)
[2020-04-29] MEDS: ENOXAPARIN 30 MG/0.3 ML (LOVENOX) SYR SC SCH (08:17)
[2020-04-29] MEDS: SENNA W/DOCUSATE (SENOKOT S) TABLET PO SCH (08:17)
--- NOTE | 2020-04-29 10:37 | Physical Therapy Daily Note ---
PT Daily Note-Current Subjective Patient agrees to PT. Pain Numeric Pain Scale: 8 Location: Left Location Body Site: Knee Pain Description: Acute Comment: meds issued Mental Status Patient Orientation: Normal For Age Transfers SCALE: Activities may be completed with or without assistive devices. 9-Gqvkrdvsxt-hqwzabj completes the activity by him/herself with no assistance from a helper. 5-Set-up or Clean-up Assistance-helper sets up or cleans up; patient completes activity. [place] assists only prior to or following the activity. 4-Supervision or Touching Assistance-helper provides verbal cues and/or touching/steadying and/or contact guard assistance as patient completes activity. Assistance may be provided throughout the activity or intermittently. 3-Partial/Moderate Assistance-helper does LESS THAN HALF the effort. [place] lifts, holds or supports trunk or limbs, but provides less than half the effort. 2-Substantial/Maximal Assistance-helper does MORE THAN HALF the effort. [place] lifts or holds trunk or limbs and provides more than half the effort. 0-Wxqekvzwi-zqddyr does ALL the effort. Patient does none of the effort to complete the activity. Or, the assistance of 2 or more helpers is required for the patient to complete the activity. If activity was not attempted, code reason: 7-Patient Refused. 9-Not Applicable-not attempted and the patient did not perform the activity before the current illness, exacerbation or injury. 10-Not Attempted due to Environmental Limitations-(lack of equipment, weather restraints, etc.). 88-Not Attempted due to Medical Conditions or Safety Concerns. Lying to Sitting/Side of Bed(Q: 4 Sit to Stand (QC): 5 Chair/Jsz-dn-Pthxi Xfer(QC): [address] Hobbs, patient should not flex left knee past 90 degrees Gait Training Does the Patient Walk?: Yes Distance: 300' x 2 Walk 10 feet (QC): 5 Walk 50 ft with 2 Turns(QC): 5 Walk 150 ft (QC): 5 Gait Assistive Device: FWW slow, antalgic Stair Training Stair Training: Handrails/: 1 handrail, uses walker #of Steps: 5 1 Step (curb) (QC): 4 4 Steps (QC): 4 12 Steps (QC): 88 Stairs: Pattern: Step to Exercises Supine Ex: Ankle pumps, Quad Set, Heel Slides, Straight leg raise (AAROM) Supine Reps: 15 Seated Therapy Exercises: Long arc quads Seated Reps: 15 Assessment Patient requires time to complete all functional tasks. Patient tolerated treatment well and will dismiss to home with spouse and home health. Instruction given to patient and spouse, via phone, to perform HEP 2-3/day PT Skilled Nursing Goals Skilled Nursing Goals PT Branch Office Manager Goals Time Frame: May 04, 2020 Roll Left & Right (QC): 6 Sit to Lying (QC): 6 Lying-Sitting on Side/Bed(QC): 6 Sit to Stand (QC): 4 Chair/Utv-js-Oghnw Xfer(QC): 4 Walk 10 feet (QC): 4 Walk 50ft with 2 Turns (QC): 4 Walk 150 ft (QC): 4 PT Plan Treatment/Plan Treatment Plan: Discontinue PT Treatment Plan: Bed Mobility, Education, Functional Activity Shaista, Functional Strength, Gait, Safety, Therapeutic Exercise, Transfers Treatment Duration: May 04, 2020 Frequency: 11 times per week Estimated Hrs Per Day: .25 hour per day Patient and/or Family Agrees t: Yes Time/GCodes Time In: 831 Time Out: 913 Total Billed Treatment Time: 42 Total Billed Treatment 1 visit GT 13 min FA 12 min EX 17 min ARMAAN YANCEY PT Apr 29, 2020 10:37
--- NOTE | 2020-04-29 10:55 | NUR ---
READY FOR DC. AWAITING RIDE.
[2020-04-29 11:40] VITALS: BP 133/66
--- NOTE | 2020-04-29 13:22 | NUR ---
IRF Evaluation Determination: Denied It appears patient is ambulating (300ft x 2), transferring and completing sit to stand with set-up, as well as lying to sitting EOB with supervision; therefore, patient does not require admission to rehabilitation program. Thank you for this referral.
--- NOTE | 2020-04-29 13:46 | NUR ---
DC'D PER WC TO HOME. RX AND INST AND VERBALIZED UNDERSTANDING. ENC TO USE POLAR PACK INSTRUCTED. HAS REFUSED IT ALL DAY TODAY AND INCREASED EDEMA TO INC SITE.
== END 2020-04-29 13:46 | disposition home or self-care (01) | DRG 470 ==
LOC: 4TH 07:51
PROVIDERS: ADMIT Orthopaedic Surgery; ATTEND Orthopaedic Surgery
PROC: 0SRD0J9 Replacement of Left Knee Joint with Synthetic Substitute, Cemented, Open Approach (ICD-10-PCS; principal; 2020-04-27 09:37)
DX: M17.12 Unilateral primary osteoarthritis, left knee (principal); D64.9 Anemia, unspecified; K21.9 Gastro-esophageal reflux disease without esophagitis; I10 Essential (primary) hypertension; Z90.49 Acquired absence of other specified parts of digestive tract
CPT/HCPCS: 36415; 73560; 82565; 82962; 85014; 85018; 86850; 86900; 86901; 94664

== ENCOUNTER 2020-04-29 04:00 | Outpatient (RCR) | payer MEDICARE, OTHER ==
[2020-04-14 12:39] VITALS: BP 158/80
[2020-04-14 13:05] LABS: BASOPHILS # (AUTO) 0.1 10^3/uL (0.0-0.1); BASOPHILS % (AUTO) 1 % (0-10); BILIRUBIN,URINE NEGATIVE (NEGATIVE); CLARITY,URINE CLEAR; COLOR,URINE YELLOW; EOSINOPHILS # (AUTO) 0.1 10^3/uL (0.0-0.3); EOSINOPHILS % (AUTO) 1 % (0-10); GLUCOSE, URINE (UA) NEGATIVE (NEGATIVE); HEMATOCRIT 40 % (40-54); HEMOGLOBIN 13.4 g/dL (13.3-17.7); KETONES,URINE NEGATIVE (NEGATIVE); LEUKOCYTE ESTERASE ,URINE NEGATIVE (NEGATIVE); LYMPHOCYTES % (AUTO) 23 % (12-44); MEAN CORPUSCULAR HEMOGLOBIN 29 pg (25-34); MEAN CORPUSCULAR HGB CONC 34 g/dL (32-36); MEAN CORPUSCULAR VOLUME 87 fL (80-99); MEAN PLATELET VOLUME 9.8 fL (9.0-12.2); MONOCYTES # (AUTO) 0.6 10^3/uL (0.0-1.0); MONOCYTES % (AUTO) 7 % (0-12); NEUTROPHILS # (AUTO) 5.8 10^3/uL (1.8-7.8); NEUTROPHILS % (AUTO) 67 % (42-75); NITRITE,URINE NEGATIVE (NEGATIVE); PH,URINE 5.5 (5-9); PLATELET COUNT 345 10^3/uL (130-400); PROTEIN,URINE NEGATIVE (NEGATIVE); WHITE BLOOD COUNT 8.7 10^3/uL (4.3-11.0)
[2020-04-14 13:12] LABS: BACTERIA,URINE NEGATIVE /HPF; WBC,URINE 0-2 /HPF
[2020-04-14 13:14] LABS: ALBUMIN 4.2 GM/DL (3.2-4.5); CHLORIDE 104 MMOL/L (98-107); POTASSIUM 3.9 MMOL/L (3.6-5.0); SODIUM 138 MMOL/L (135-145)
[2020-04-14 13:16] LABS: CALCIUM 9.2 MG/DL (8.5-10.1)
[2020-04-14 13:17] LABS: GLUCOSE 115 MG/DL (70-105); TOTAL PROTEIN 6.6 GM/DL (6.4-8.2)
[2020-04-14 13:18] LABS: CARBON DIOXIDE 24 MMOL/L (21-32)
[2020-04-14 13:19] LABS: BILIRUBIN,TOTAL 0.4 MG/DL (0.1-1.0)
[2020-04-14 13:20] LABS: ALKALINE PHOSPHATASE 71 U/L (40-136); CREATININE SERUM 0.92 MG/DL (0.60-1.30); GFR ESTIMATED > 60
[2020-04-14 13:21] LABS: BUN/CREATININE RATIO 17
[2020-04-14 13:23] LABS: ALANINE AMINOTRANSFERASE 35 U/L (0-55)
[2020-04-14 13:34] LABS: ERYTHROCYTE SEDIMENTATION RATE 6 MM/HR (0-30)
--- NOTE | 2020-04-14 13:34 | Diagnostic Imaging Report ---
Indication: Preop knee arthroplasty PA and lateral chest Heart size and pulmonary vascularity are normal. Lungs are clear. There are no effusions or pneumothoraces. IMPRESSION: Negative chest. Dictated by: Dictated on workstation # [id number]
[2020-04-14 13:48] LABS: PROTHROMBIN TIME PATIENT 13.1 SEC (12.2-14.7)
[~2020-04-29] VITALS: Ht 172 cm; Wt 79.5 kg
[~2020-04-29 04:00] MED LIST changes: +ACETAMINOPHEN 325 MG TABLET PO PRN; +CEFUROXIME INJECTION 750 MG in WATER (STERILE) FOR INJECTION 10 ML IV SCH; -LIDOCAINE PF 2% 5 ML (XYLOCAINE) VIAL ONE; -LISI10TA2 PO; +LISI10TA25 PO; -MIDAZOLAM 2 MG/2 ML (VERSED) VIAL ONE; +MULTIVIT W/MINERALS TAB (THERAGRAN M) PO SCH; +NS IV 1000 ML 1,000 ML IV SCH; -ROPIVACAINE 5MG/ML 30ML VIAL ONE; +SENNA W/DOCUSATE (SENOKOT S) TABLET PO SCH; -fentaNYL INJECTION 100 MCG/2 ML AMP ONE
== END 2020-07-13 | disposition home or self-care (01) ==
LOC: PREOP 04:00
PROVIDERS: ATTEND Orthopaedic Surgery
DX: Z01.812 Encounter for preprocedural laboratory examination (principal); M17.12 Unilateral primary osteoarthritis, left knee; Z20.828 Contact with and (suspected) exposure to other viral communicable diseases
CPT/HCPCS: 36415; 71046; 80053; 81000; 85014; 85018; 85025; 85610; 85652; 86850; 86900; 86901; 87081; 87635; 93005

== ENCOUNTER → 2022-01-13 | Outpatient (CLI) | payer MEDICARE, OTHER ==
[~2022-01-13] MED LIST changes: -ACETAMINOPHEN 325 MG TABLET PO PRN; -CEFUROXIME INJECTION 750 MG in WATER (STERILE) FOR INJECTION 10 ML IV SCH; -MULTIVIT W/MINERALS TAB (THERAGRAN M) PO SCH; -NS IV 1000 ML 1,000 ML IV SCH; -SENNA W/DOCUSATE (SENOKOT S) TABLET PO SCH
[2022-01-13 13:43] LABS: BILIRUBIN,URINE NEGATIVE (NEGATIVE); CLARITY,URINE CLEAR; COLOR,URINE YELLOW; GLUCOSE, URINE (UA) NEGATIVE (NEGATIVE); KETONES,URINE NEGATIVE (NEGATIVE); LEUKOCYTE ESTERASE ,URINE TRACE (NEGATIVE); NITRITE,URINE NEGATIVE (NEGATIVE); PROTEIN,URINE NEGATIVE (NEGATIVE)
[2022-01-13 13:55] LABS: BACTERIA,URINE TRACE /HPF; SQUAMOUS EPITHELIAL CELL,UR RARE /HPF
== END ==
LOC: LAB 13:22
DX: R30.0 Dysuria (principal)
CPT/HCPCS: 81000; 87088

== ENCOUNTER 2022-02-05 05:35 | Outpatient (CLI) | payer MEDICARE, OTHER ==
[~2022-02-05] VITALS: Ht 172.7 cm; Wt 73.6 kg
[2022-02-05] MEDS ORDERED: ALFU10TA12 PO (12:20)
== END 2022-02-05 12:28 | disposition home or self-care (01) ==
LOC: PREOP 05:35
PROVIDERS: ATTEND Specialist
DX: Z01.818 Encounter for other preprocedural examination (principal)

== ENCOUNTER 2022-02-09 08:23 | Day surgery (SDC) | payer MEDICARE, OTHER ==
[~2022-02-09] VITALS: Ht 172.7 cm; Wt 73.6 kg
[~2022-02-09 08:23] MED LIST changes: +ALFU10TA12 PO
[2022-02-09] MEDS: TETRACAINE 0.5% OPHTH SOLN 4 ML BTL (SINGLE DOSE ONLY) OU PRN ×4 (08:41→09:01)
[2022-02-09] MEDS ORDERED: MOXIFLOXACIN OPHTH SOLN 5 MG/ML 0.3 ML SYRINGE OP ONE (08:45)
[2022-02-09] MEDS ORDERED: TIMOLOL MALEATE 0.5% 5 ML (TIMOPTIC) BTL OU PRN (08:45)
[2022-02-09] MEDS ORDERED: POVIDONE (BETADINE) OPHTH SOLN 5% 30 ML OP ONE (08:45)
[2022-02-09] MEDS ORDERED: acetaZOLAMIDE ER 500 MG CAP (DIAMOX SEQUELS) PO ONE (08:45)
[2022-02-09 08:47] VITALS: BP 123/80
[2022-02-09] MEDS: TROPICAMIDE 1% OPH SOLN (MYDRIACYL) 15 ML BTL OP SCH ×3 (08:50→09:01)
[2022-02-09] MEDS: PHENYLEPHRINE 10% OPHTH (NEO-SYN) 5 ML BTL OU SCH ×3 (08:50→09:01)
[2022-02-09] MEDS ORDERED: MIDAZOLAM 2 MG/2 ML (VERSED) VIAL ONE (09:06)
--- NOTE | 2022-02-09 09:24 | Ophthalmologist Pre-Op Note ---
Pre-Operative Progress Note H&P Reviewed The H&P was reviewed, patient examined and no changes noted. Date H&P Reviewed: Feb 09, 2022 Time H&P Reviewed: 09:24 Pre-Op Dx Cataract, Right Eye REBECCA ABRAMS MD Feb 09, 2022 09:24
--- NOTE | 2022-02-09 09:50 | Ophthalmology Operative Report ---
Cataract removal/placement IOL PREOPERATIVE DIAGNOSIS: Cataract Right Eye POSTOPERATIVE DIAGNOSIS: Cataract Right Eye PROCEDURE: Cataract removal and placement of posterior chamber implant, right eye SURGEON: Raymond Abrams ANESTHESIA: Topical with sedation COMPLICATIONS: None ESTIMATED BLOOD LOSS: Minimal DESCRIPTION OF PROCEDURE: After proper informed consent was obtained, the patient, a 71 male, was taken to the Operating Room and the right eye was anesthetized with tetracaine. The right eye was then prepped and draped in the usual manner. A wire lid speculum was placed. A paracentesis was made at the left hand position. Preservative free lidocaine was injected into the anterior chamber followed by viscoelastic. A clear corneal incision was made in the temporal position. A capsulorrhexis was preformed and the central nuclear and cortical material were removed. The posterior capsule was polished and Norbert [id number] 18.5 IOL was placed into the capsular bag. The residual viscoelastic was aspirated and balanced saline solution was injected into the anterior chamber. Moxifloxacin was injected into the anterior chamber. The wound was checked and found to be water tight. The patient tolerated the procedure well without complications. RAYMOND ABRAMS MD Feb 09, 2022 09:50
[2022-02-09 09:55] VITALS: BP 133/92
--- NOTE | 2022-02-09 14:41 | Anesthesia-General Post-Op ---
MAC Patient Condition Mental Status/LOC: Same as Preop Cardiovascular: Satisfactory Nausea/Vomiting: Absent Respiratory: Satisfactory Pain: Controlled Complications: Absent Post Op Complications Complications None Follow Up Care/Instructions Patient Instructions None needed. Anesthesiology Discharge Order Discharge Order Patient is doing well, no complaints, stable vital signs, no apparent adverse anesthesia problems. No complications reported per nursing. JOHANNA GARRISON CRNA Feb 09, 2022 14:41
== END 2022-02-09 09:58 | disposition home or self-care (01) ==
LOC: SDC 08:23
PROVIDERS: ATTEND Specialist
DX: H25.9 Unspecified age-related cataract (principal)
CPT/HCPCS: 66984; V2632

== ENCOUNTER → 2022-02-23 | Outpatient (CLI) | payer MEDICARE, OTHER ==
[~2022-02-23] MED LIST changes: +CETI10CA PO; +GLUC1CAP37 PO
== END | disposition home or self-care (01) ==
LOC: PREOP 05:34
PROVIDERS: ATTEND Specialist
DX: Z01.818 Encounter for other preprocedural examination (principal)

== ENCOUNTER 2022-03-02 08:30 | Day surgery (SDC) | payer MEDICARE, OTHER ==
[~2022-03-02] VITALS: Ht 172.7 cm; Wt 73.6 kg
[2022-03-02] MEDS ORDERED: MIDAZOLAM 2 MG/2 ML (VERSED) VIAL ONE (08:41)
[2022-03-02] MEDS: TETRACAINE 0.5% OPHTH SOLN 4 ML BTL (SINGLE DOSE ONLY) OU PRN ×4 (08:42→09:04)
[2022-03-02 08:45] VITALS: BP 125/90
[2022-03-02] MEDS ORDERED: POVIDONE (BETADINE) OPHTH SOLN 5% 30 ML OP ONE (08:45)
[2022-03-02] MEDS ORDERED: MOXIFLOXACIN OPHTH SOLN 5 MG/ML 0.3 ML SYRINGE OP ONE (08:45)
[2022-03-02] MEDS ORDERED: TIMOLOL MALEATE 0.5% 5 ML (TIMOPTIC) BTL OU PRN (08:45)
[2022-03-02] MEDS ORDERED: acetaZOLAMIDE ER 500 MG CAP (DIAMOX SEQUELS) PO ONE (08:45)
[2022-03-02] MEDS: PHENYLEPHRINE 10% OPHTH (NEO-SYN) 5 ML BTL OU SCH ×3 (08:54→09:05)
[2022-03-02] MEDS: TROPICAMIDE 1% OPH SOLN (MYDRIACYL) 15 ML BTL OP SCH ×3 (08:54→09:05)
--- NOTE | 2022-03-02 09:14 | Ophthalmologist Pre-Op Note ---
Pre-Operative Progress Note H&P Reviewed The H&P was reviewed, patient examined and no changes noted. Date H&P Reviewed: Mar 02, 2022 Time H&P Reviewed: 09:14 Pre-Op Dx Cataract, Left Eye REBECCA ABRAMS MD Mar 02, 2022 09:14
--- NOTE | 2022-03-02 09:35 | Ophthalmology Operative Report ---
Cataract removal/placement IOL PREOPERATIVE DIAGNOSIS: Cataract Left Eye POSTOPERATIVE DIAGNOSIS: Cataract Left Eye PROCEDURE: Cataract removal and placement of posterior chamber implant, left eye SURGEON: Raymond Abrams ANESTHESIA: Topical with sedation COMPLICATIONS: None ESTIMATED BLOOD LOSS: Minimal DESCRIPTION OF PROCEDURE: After proper informed consent was obtained, the patient, a 71 male, was taken to the Operating Room and the left eye was anesthetized with tetracaine. The left eye was then prepped and draped in the usual manner. A wire lid speculum was placed. A paracentesis was made at the left hand position. Preservative free lidocaine was injected into the anterior chamber followed by viscoelastic. A clear corneal incision was made in the temporal position. A capsulorrhexis was preformed and the central nuclear and cortical material were removed. The posterior capsule was polished and an Norbert 19.0 [id number] was placed into the capsular bag. The residual viscoelastic was aspirated and balanced saline solution was injected into the anterior chamber. Moxifloxacin was injected into the anterior chamber. The wound was checked and found to be water tight. The patient tolerated the procedure well without complications. RAYMOND ABRAMS MD Mar 02, 2022 09:35
[2022-03-02 09:40] VITALS: BP 141/88
--- NOTE | 2022-03-02 14:00 | Anesthesia-General Post-Op ---
MAC Patient Condition Mental Status/LOC: Same as Preop Cardiovascular: Satisfactory Nausea/Vomiting: Absent Respiratory: Satisfactory Pain: Controlled Complications: Absent Post Op Complications Complications None Follow Up Care/Instructions Patient Instructions None needed. Anesthesiology Discharge Order Discharge Order Patient is doing well, no complaints, stable vital signs, no apparent adverse anesthesia problems. No complications reported per nursing. EUGENE WEI CRNA Mar 02, 2022 14:00
== END 2022-03-02 09:40 | disposition home or self-care (01) ==
LOC: SDC 08:30
PROVIDERS: ATTEND Specialist
DX: H25.9 Unspecified age-related cataract (principal)
CPT/HCPCS: 66984; V2632

== ENCOUNTER 2022-04-14 18:48 | Emergency (ER) | payer MEDICARE, OTHER ==
[~2022-04-14] VITALS: Ht 172 cm; Wt 72.0 kg
[2022-04-14] MEDS ORDERED: fentaNYL INJ 100 MCG/2 ML AMP IVP ONE (19:00)
--- NOTE | 2022-04-14 19:18 | ED Back Pain ---
General Chief Complaint: Back Problems Stated Complaint: LOWER BACK PAIN Source of Information: Patient History of Present Illness Date Seen by Provider: Apr 14, 2022 Time Seen by Provider: 19:00 Initial Comments 72-year-old male presents to the emergency department today for low back pain. He was driving to [place] this evening just before 530 and had a sudden spasm in his low back. He describes as dull throbbing with waves of severe pain. He is currently about a 4/10 but 8/10 at maximum. No lower extremity weakness numbness or tingling, loss of bowel or bladder control or saddle anesthesia. He does have a history of prostatitis and is currently on a second round of Bactrim by urology. He has chronically decreased urination. No dysuria and states his urine is clear. No fevers or chills. No trauma but he did walk a long amount today as his truck broke down earlier in the day when he walked over half of a mile to get help. Allergies and Home Medications Allergies Coded Allergies: No Known Drug Allergies (Unverified , 04/14/20) Patient Home Medication List Home Medication List Reviewed: Yes Alfuzosin HCl (Alfuzosin HCl ER) 10 Mg Tab.er.24h, 10 MG PO DAILY, (Reported) Entered as Reported by: CHIKI CHAPMAN on 02/05/22 1220 Ascorbic Acid (Vitamin C) 500 Mg Capsule, 500 MG PO DAILY, (Reported) Entered as Reported by: AL LOERA on 04/14/20 1236 Cetirizine HCl (Zyrtec) 10 Mg Capsule, 10 MG PO UD, (Reported) Entered as Reported by: EVIN HAWKINS on 02/23/22 1054 Cholecalciferol (Vitamin D3) (Vitamin D3) 50 Mcg Capsule, 50 MCG PO DAILY, (Reported) Entered as Reported by: AL LOERA on 04/14/20 1236 Ferrous Sulfate (Iron) 325 Mg Tablet, 325 MG PO DAILY, (Reported) Entered as Reported by: AL LOERA on 04/14/20 1236 Glucosa Cote 2Kcl/Chondroitin Cote (Glucosamine & Chondroitin Cap) 500 Mg-400 Mg Capsule, 1 EACH PO UD, (Reported) Entered as Reported by: EVIN HAWKINS on 02/23/22 1054 Lisinopril (Lisinopril) 10 Mg Tablet, 10 MG PO DAILY, (Reported) Entered as Reported by: AL LOERA on 04/14/20 1236 Loratadine (Loratadine) 10 Mg Tablet, 10 MG PO DAILY, (Reported) Entered as Reported by: AL LOERA on 04/14/20 1236 Meloxicam (Meloxicam) 15 Mg Tablet, 15 MG PO DAILY, (Reported) Entered as Reported by: AL LOERA on 04/14/20 1236 Multivitamin (Multivitamin) 1 Each Tablet, 1 EACH PO DAILY, (Reported) Entered as Reported by: AL LOERA on 04/14/20 1236 Omeprazole (Omeprazole) 20 Mg Capsule.dr, 20 MG PO BID, (Reported) Entered as Reported by: AL LOERA on 04/14/20 1236 Zinc Amino Acid Chelate (Zinc) 50 Mg Tablet, 50 MG PO DAILY, (Reported) Entered as Reported by: AL LOERA on 04/14/20 1236 Review of Systems Constitutional: no symptoms reported EENTM: no symptoms reported Respiratory: no symptoms reported Cardiovascular: no symptoms reported Gastrointestinal: no symptoms reported Genitourinary: no symptoms reported Musculoskeletal: back pain Skin: no symptoms reported Psychiatric/Neurological: No Symptoms Reported Past Mkpvopo-Bpghmr-Bdqbpc Hx Patient Social History Tobacco Use?: No Use of E-Cig and/or Vaping dev: No Substance use?: No Alcohol Use?: No Seasonal Allergies Seasonal Allergies: Yes Past Medical History Surgeries: Yes Respiratory: No Cardiac: Yes Neurological: No Sexually Transmitted Disease: No HIV/AIDS: No Genitourinary: No Gastrointestinal: No Musculoskeletal: Yes (LEFT KNEE) Arthritis Endocrine: No HEENT: Yes (GLASSES) Loss of Vision: Denies Hearing Impairment: Denies Cancer: No Psychosocial: No Integumentary: Yes (PRE SKIN CANCER) Blood Disorders: No Adverse Reaction/Blood Tranf: No (N/A) Family Medical History Reviewed Nursing Family Hx No Pertinent Family Hx Physical Exam Vital Signs Vital Signs - First Documented 04/14/22 18:54 Temp 36.7 Pulse 71 Resp 20 B/P (MAP) 139/89 (106) Pulse Ox 95 O2 Delivery Room Air Capillary Refill : Height, Weight, BMI Height: '" Weight: lbs. oz. kg; 26.87 BMI Method: General Appearance: WD/WN, Other (Appears to be in pain) HEENT: Normal ENT Inspection, Pharynx Normal Neck: Full Range of Motion, Normal Inspection, Non Tender, Supple Cardiovascular: Regular Rate, Rhythm, No Edema, No Gallop, No JVD, No Murmur, Normal Peripheral Pulses Respiratory: Chest Non Tender, Lungs Clear, Normal Breath Sounds, No Accessory Muscle Use, No Respiratory Distress Gastrointestinal: Normal Bowel Sounds, No Organomegaly, No Pulsatile Mass, Non Tender, Soft Back: Normal Inspection, No CVA Tenderness, Other (Unable to reproduce pain on exam at this time) Extremity: Normal Capillary Refill, Normal Inspection, Normal Range of Motion, Non Tender, No Calf Tenderness Neurologic/Psychiatric: Alert, Oriented x3, Normal Mood/Affect Skin: Normal Color, Warm/Dry Lymphatic: No Adenopathy Progress/Results/Core Measures Results/Orders Lab Results Laboratory Tests Test 04/14/22 19:08 04/14/22 19:46 Range/Units White Blood Count 7.5 4.3-11.0 10^3/uL Red Blood Count 4.46 4.30-5.52 10^6/uL Hemoglobin 13.4 13.3-17.7 g/dL Hematocrit 38 L 40-54 % Mean Corpuscular Volume 86 80-99 fL Mean Corpuscular Hemoglobin 30 25-34 pg Mean Corpuscular Hemoglobin Concent 35 32-36 g/dL Red Cell Distribution Width 12.7 10.0-14.5 % Platelet Count 332 130-400 10^3/uL Mean Platelet Volume 9.6 9.0-12.2 fL Immature Granulocyte % (Auto) 0 % Neutrophils (%) (Auto) 59 42-75 % Lymphocytes (%) (Auto) 30 12-44 % Monocytes (%) (Auto) 8 0-12 % Eosinophils (%) (Auto) 3 0-10 % Basophils (%) (Auto) 1 0-10 % Neutrophils # (Auto) 4.4 1.8-7.8 10^3/uL Lymphocytes # (Auto) 2.2 1.0-4.0 10^3/uL Monocytes # (Auto) 0.6 0.0-1.0 10^3/uL Eosinophils # (Auto) 0.2 0.0-0.3 10^3/uL Basophils # (Auto) 0.1 0.0-0.1 10^3/uL Immature Granulocyte # (Auto) 0.0 0.0-0.1 10^3/uL Sodium Level 141 135-145 MMOL/L Potassium Level 4.3 3.6-5.0 MMOL/L Chloride Level 108 H 98-107 MMOL/L Carbon Dioxide Level 20 L 21-32 MMOL/L Anion Gap 13 5-14 MMOL/L Blood Urea Nitrogen 19 H 7-18 MG/DL Creatinine 1.07 0.60-1.30 MG/DL Estimat Glomerular Filtration Rate 75 BUN/Creatinine Ratio 18 Glucose Level 125 H 70-105 MG/DL Calcium Level 9.8 8.5-10.1 MG/DL Corrected Calcium 9.6 8.5-10.1 MG/DL Total Bilirubin 0.3 0.1-1.0 MG/DL Aspartate Amino Transf (AST/SGOT) 17 5-34 U/L Alanine Aminotransferase (ALT/SGPT) 14 0-55 U/L Alkaline Phosphatase 65 40-136 U/L Total Protein 6.8 6.4-8.2 GM/DL Albumin 4.3 3.2-4.5 GM/DL Urine Color YELLOW Urine Clarity CLEAR Urine pH 6.0 5-9 Urine Specific [place] 1.025 H 1.016-1.022 Urine Protein NEGATIVE NEGATIVE Urine Glucose (UA) NEGATIVE NEGATIVE Urine Ketones NEGATIVE NEGATIVE Urine Nitrite NEGATIVE NEGATIVE Urine Bilirubin NEGATIVE NEGATIVE Urine Urobilinogen 0.2 < = 1.0 MG/DL Urine Leukocyte Esterase TRACE H NEGATIVE Urine RBC (Auto) TRACE-I H NEGATIVE Urine RBC 2-5 H /HPF Urine WBC 2-5 /HPF Urine Squamous Epithelial Cells NONE /HPF Urine Crystals NONE /LPF Urine Bacteria FEW H /HPF Urine Casts NONE /LPF Urine Mucus MODERATE H /LPF Urine Culture Indicated YES My Orders Orders - GERARDO PATEL DO Ct Lumbar Spine Wo (04/14/22 18:59) Ct Abd/Pelvis Wo(Kidney Stone) (04/14/22 18:59) Comprehensive Metabolic Panel (04/14/22 18:59) Cbc With Automated Diff (04/14/22 18:59) Ua Culture If Indicated (04/14/22 18:59) Fentanyl Inj (Sublimaze Injection) (04/14/22 19:00) Iv/Invasive Line Insertion .IV INSERT (04/14/22 18:59) Urine Culture (04/14/22 19:46) Ketorolac Injection (Toradol Injection) (04/14/22 20:45) Medications Given in ED Current Medications Medications Dose Ordered Sig/Guillaume Route Start Time Stop Time Status Last Admin Dose Admin Fentanyl Citrate 50 mcg ONCE ONCE IVP 04/14/22 19:00 04/14/22 19:01 DC 04/14/22 19:12 50 MCG Vital Signs/I&O 04/14/22 18:54 Temp 36.7 Pulse 71 Resp 20 B/P (MAP) 139/89 (106) Pulse Ox 95 O2 Delivery Room Air Departure Communication (Admissions) The patient is hemodynamically stable. He has a small stone at the right UVJ with some hydroureter and hydronephrosis. Does have trace minimal nocturia with leuk esterase in his urine. He is already on Cipro for prostatitis which should cover any bacterial infections. He is afebrile, nontoxic in appearance. He sees Dr. Beebe already and will schedule follow-up appointment. No indication for lumbar source of his pain, radiculopathy, cauda equina or other cord syndrome. Impression Primary Impression: Ureterolithiasis Additional Impression: Renal colic Disposition: 01 HOME, SELF-CARE Condition: Stable Departure-Patient Inst. Referrals: ALIS CARDENAS MD (PCP/Family) Primary Care Physician Patient Instructions: Kidney Stones in Adults, How to Strain Your Urine Add. Discharge Instructions: Take the pain medication as prescribed as needed. Increase your fluids at home, rest. Take the Flomax for the next 48 hours. Return to the emergency department for any severe concerns. Follow-up with Dr. Beebe for any nonemergent needs. All discharge instructions reviewed with patient and/or family. Voiced understanding. Scripts Hydrocodone Bit/Acetaminophen (HYDROcodone/APAP 5 MG/325 MG TAB) 1 Tab Tab 1 TAB PO Q6H for Pain for 3 Days, #12 TAB Prov: GERARDO PATEL DO 04/14/22 GERARDO PATEL DO Apr 14, 2022 19:18
[2022-04-14 19:23] LABS: BASOPHILS # (AUTO) 0.1 10^3/uL (0.0-0.1); BASOPHILS % (AUTO) 1 % (0-10); EOSINOPHILS # (AUTO) 0.2 10^3/uL (0.0-0.3); EOSINOPHILS % (AUTO) 3 % (0-10); HEMATOCRIT 38 % (40-54); HEMOGLOBIN 13.4 g/dL (13.3-17.7); LYMPHOCYTES # (AUTO) 2.2 10^3/uL (1.0-4.0); LYMPHOCYTES % (AUTO) 30 % (12-44); MEAN CORPUSCULAR HEMOGLOBIN 30 pg (25-34); MEAN CORPUSCULAR HGB CONC 35 g/dL (32-36); MEAN CORPUSCULAR VOLUME 86 fL (80-99); MEAN PLATELET VOLUME 9.6 fL (9.0-12.2); MONOCYTES # (AUTO) 0.6 10^3/uL (0.0-1.0); MONOCYTES % (AUTO) 8 % (0-12); NEUTROPHILS # (AUTO) 4.4 10^3/uL (1.8-7.8); NEUTROPHILS % (AUTO) 59 % (42-75); PLATELET COUNT 332 10^3/uL (130-400); WHITE BLOOD COUNT 7.5 10^3/uL (4.3-11.0)
[2022-04-14 19:47] LABS: ALBUMIN 4.3 GM/DL (3.2-4.5); BILIRUBIN,TOTAL 0.3 MG/DL (0.1-1.0); CALCIUM 9.8 MG/DL (8.5-10.1); CREATININE SERUM 1.07 MG/DL (0.60-1.30); POTASSIUM 4.3 MMOL/L (3.6-5.0); TOTAL PROTEIN 6.8 GM/DL (6.4-8.2)
--- NOTE | 2022-04-14 19:49 | Diagnostic Imaging Report ---
PROCEDURE: CT lumbar spine without contrast. TECHNIQUE: Multiple contiguous axial images were obtained through the lumbar spine without the use of intravenous contrast. Sagittal and coronal reformations were then performed. Auto Exposure Controls were utilized during the CT exam to meet ALARA standards for radiation dose reduction. INDICATION: Back pain. COMPARISON: None. FINDINGS: No acute fracture in the lumbar spine. There is grade 1 anterolisthesis of L5 on S1 with bilateral pars defects at L5. No focal osseous lesion. IMPRESSION: 1. No acute fracture or dislocation in the lumbar spine. 2. Grade 1 anterolisthesis of L5 on S1 with bilateral pars defects at L5. Dictated by: Dictated on workstation # [id number]
[2022-04-14 19:51] LABS: BILIRUBIN,URINE NEGATIVE (NEGATIVE); CLARITY,URINE CLEAR; COLOR,URINE YELLOW; GLUCOSE, URINE (UA) NEGATIVE (NEGATIVE); KETONES,URINE NEGATIVE (NEGATIVE); LEUKOCYTE ESTERASE ,URINE TRACE (NEGATIVE); NITRITE,URINE NEGATIVE (NEGATIVE); PROTEIN,URINE NEGATIVE (NEGATIVE)
--- NOTE | 2022-04-14 19:51 | Diagnostic Imaging Report ---
PROCEDURE: CT urinary tract, rule out kidney stone. TECHNIQUE: Multiple contiguous axial images were obtained through the abdomen and pelvis without the use of intravenous contrast. Auto Exposure Controls were utilized during the CT exam to meet ALARA standards for radiation dose reduction. INDICATION: Back pain. Abdominal pain. COMPARISON: None. FINDINGS: The heart size is mildly prominent. Small amount of dependent opacities are seen in the lung bases. A 2 mm calculus is seen in the right UVJ with mild right-sided hydroureteronephrosis. Bilateral nonobstructing calculi are seen. The liver, spleen, pancreas and adrenal glands have a normal noncontrast CT appearance. The gallbladder is unremarkable. No bowel obstruction. No free fluid or free air. No acute osseous abnormality. There is calcified aortic atherosclerotic plaque. IMPRESSION: 2 mm calculus at the right UVJ with mild right-sided hydroureteronephrosis. Additional bilateral nonobstructing calculi are seen. Dictated by: Dictated on workstation # [id number]
[2022-04-14 20:03] LABS: BACTERIA,URINE FEW /HPF
[2022-04-14] MEDS ORDERED: KETOROLAC 30 MG/ML VIAL IVP ONE (20:45)
[2022-04-14] MEDS ORDERED: ACHD5005 PO (20:46)
[2022-04-14 21:25] VITALS: BP 137/86
== END 2022-04-14 21:25 | disposition home or self-care (01) ==
LOC: EDUNIT# 18:48 → ER 18:49
DX: N13.2 Hydronephrosis with renal and ureteral calculous obstruction (principal); N23 Unspecified renal colic
CPT/HCPCS: 36415; 72131; 74176; 80053; 81000; 85025; 87088

== ENCOUNTER 2022-07-11 22:42 | Emergency (ER) | payer MEDICARE, OTHER ==
[~2022-07-11] VITALS: Ht 172 cm; Wt 72.0 kg
[~2022-07-11 22:42] MED LIST changes: +ACHD5005 PO
[2022-07-11 22:46] VITALS: BP 133/84
--- NOTE | 2022-07-11 22:53 | ED GU-Male ---
General Stated Complaint: BLADDER ISSUES History of Present Illness Date Seen by Provider: Jul 11, 2022 Time Seen by Provider: 22:48 Initial Comments 72-year-old male presents with dysuria. He has been having issues with it on and off for quite a while. Patient had in the past been on Bactrim for "chronic bladder infection" he just finished cefdinir yesterday. He reports that he feels like he has a urinary a lot has some burning. He does have increased intake of diet sodas recently. Feels like occasionally he sees like some blood versus "tissue" when he urinates. He has had a kidney stone in the past. He also sounds like he has had a cystoscope in the past. No reports of fevers, chills Allergies and Home Medications Allergies Coded Allergies: No Known Drug Allergies (Unverified , 04/14/20) Patient Home Medication List Home Medication List Reviewed: Yes Alfuzosin HCl (Alfuzosin HCl ER) 10 Mg Tab.er.24h, 10 MG PO DAILY, (Reported) Entered as Reported by: CHIKI CHAPMAN on 02/05/22 1220 Ascorbic Acid (Vitamin C) 500 Mg Capsule, 500 MG PO DAILY, (Reported) Entered as Reported by: AL LOERA on 04/14/20 1236 Cetirizine HCl (Zyrtec) 10 Mg Capsule, 10 MG PO UD, (Reported) Entered as Reported by: EVIN HAWKINS on 02/23/22 1054 Cholecalciferol (Vitamin D3) (Vitamin D3) 50 Mcg Capsule, 50 MCG PO DAILY, (Reported) Entered as Reported by: AL LOERA on 04/14/20 1236 Ferrous Sulfate (Iron) 325 Mg Tablet, 325 MG PO DAILY, (Reported) Entered as Reported by: AL LOERA on 04/14/20 1236 Glucosa Cote 2Kcl/Chondroitin Cote (Glucosamine & Chondroitin Cap) 500 Mg-400 Mg Capsule, 1 EACH PO UD, (Reported) Entered as Reported by: EVIN HAWKINS on 02/23/22 1054 Hydrocodone Bit/Acetaminophen (HYDROcodone/APAP 5 MG/325 MG TAB) 1 Tab Tab, 1 TAB PO Q6H Prescribed by: GERARDO PATEL MD on 04/14/222045 Lisinopril (Lisinopril) 10 Mg Tablet, 10 MG PO DAILY, (Reported) Entered as Reported by: AL LOERA on 04/14/20 1236 Loratadine (Loratadine) 10 Mg Tablet, 10 MG PO DAILY, (Reported) Entered as Reported by: AL LOERA on 04/14/20 1236 Meloxicam (Meloxicam) 15 Mg Tablet, 15 MG PO DAILY, (Reported) Entered as Reported by: AL LOERA on 04/14/20 1236 Multivitamin (Multivitamin) 1 Each Tablet, 1 EACH PO DAILY, (Reported) Entered as Reported by: AL LOERA on 04/14/20 1236 Omeprazole (Omeprazole) 20 Mg Capsule.dr, 20 MG PO BID, (Reported) Entered as Reported by: AL LOERA on 04/14/20 1236 Zinc Amino Acid Chelate (Zinc) 50 Mg Tablet, 50 MG PO DAILY, (Reported) Entered as Reported by: AL LOERA on 04/14/20 1236 Review of Systems Review of Systems Constitutional: no symptoms reported EENTM: no symptoms reported Respiratory: no symptoms reported Cardiovascular: no symptoms reported Genitourinary: see HPI, burning, dysuria, frequency Musculoskeletal: no symptoms reported Skin: no symptoms reported Psychiatric/Neurological: No Symptoms Reported Past Asxgjsm-Wvyvod-Rkojrb Hx Seasonal Allergies Seasonal Allergies: Yes Past Medical History Surgeries: Yes Respiratory: No Cardiac: Yes Neurological: No Sexually Transmitted Disease: No HIV/AIDS: No Genitourinary: No Gastrointestinal: No Musculoskeletal: Yes (LEFT KNEE) Arthritis Endocrine: No HEENT: Yes (GLASSES) Loss of Vision: Denies Hearing Impairment: Denies Cancer: No Psychosocial: No Integumentary: Yes (PRE SKIN CANCER) Blood Disorders: No Adverse Reaction/Blood Tranf: No (N/A) Family Medical History No Pertinent Family Hx Physical Exam Vital Signs Vital Signs - First Documented 07/11/22 22:46 Temp 35.9 Pulse 88 Resp 18 B/P (MAP) 133/84 (100) Pulse Ox 99 O2 Delivery Room Air Capillary Refill : Height, Weight, BMI Height: '" Weight: lbs. oz. kg; 24.00 BMI Method: General Appearance: WD/WN, no apparent distress Cardiovascular: normal peripheral pulses, regular rate, rhythm Respiratory: lungs clear, normal breath sounds Gastrointestinal: non tender, soft Extremities: normal range of motion, non-tender Neurologic/Psychiatric: alert, normal mood/affect, oriented x 3 Progress/Results/Core Measures Suspected Sepsis SIRS Temperature: Pulse: Respiratory Rate: Blood Pressure / Mean: Results/Orders Lab Results Laboratory Tests Test 07/11/22 22:52 Range/Units Urine Color YELLOW Urine Clarity CLOUDY Urine pH 6.5 5-9 Urine Specific [place] 1.010 L 1.016-1.022 Urine Protein 2+ H NEGATIVE Urine Glucose (UA) NEGATIVE NEGATIVE Urine Ketones NEGATIVE NEGATIVE Urine Nitrite NEGATIVE NEGATIVE Urine Bilirubin NEGATIVE NEGATIVE Urine Urobilinogen 0.2 < = 1.0 MG/DL Urine Leukocyte Esterase 2+ H NEGATIVE Urine RBC (Auto) 3+ H NEGATIVE Urine RBC 2-5 H /HPF Urine WBC 25-50 H /HPF Urine Squamous Epithelial Cells 0-2 /HPF Urine Crystals NONE /LPF Urine Bacteria TRACE /HPF Urine Casts NONE /LPF Urine Mucus NEGATIVE /LPF Urine Culture Indicated YES My Orders Orders - SERGEY PETIT L DO Ua Culture If Indicated (07/11/22 22:56) Phenazopyridine Tablet (Pyridium Tablet) (07/11/22 23:00) Urine Culture (07/11/22 22:52) Medications Given in ED Current Medications Medications Dose Ordered Sig/Guillaume Route Start Time Stop Time Status Last Admin Dose Admin Phenazopyridine HCl 100 mg ONCE ONCE PO 07/11/22 23:00 07/11/22 23:01 DC 07/11/22 23:04 100 MG Vital Signs/I&O 07/11/22 22:46 Temp 35.9 Pulse 88 Resp 18 B/P (MAP) 133/84 (100) Pulse Ox 99 O2 Delivery Room Air Capillary Refill : Progress Note : Progress Note Patient's urine was reviewed and shows large amount of blood and WBCs. Patient does have a history of prostatitis and had been on Bactrim. Due to his prostatitis history along with the concerning urine I will start him on Bactrim twice daily for 10 days. I recommend he follow-up with his primary care provider and get a urology consultation for further evaluation. Patient was started his initial dose of Bactrim here in the ER and given a prescription. He was stable and discharged home Departure Impression Primary Impression: Urinary tract infection Qualified Codes: N39.0 - Urinary tract infection, site not specified; R31.9 - Hematuria, unspecified Disposition: 01 HOME, SELF-CARE Condition: Stable Departure-Patient Inst. Referrals: ALIS CARDENAS MD (PCP/Family) Primary Care Physician Patient Instructions: Urinary Tract Infection, Adult (DC) Add. Discharge Instructions: Please follow-up with Dr. Cardenas, along with a urologist for further evaluation and management. You may try [id number] Azo or similar medication to help with the spasm and burning. Encourage you to drink plenty of fluids. Scripts Sulfamethoxazole/Trimethoprim (Bactrim Ds Tablet) 1 Each Tablet 1 EACH PO BID, #20 TAB Prov: SERGEY PETIT DO 07/11/22 SERGEY PETIT DO Jul 11, 2022 22:52
[2022-07-11] MEDS ORDERED: PHENAZOPYRIDINE 100 MG (PYRIDIUM) TABLET PO ONE (23:00)
[2022-07-11 23:02] LABS: BILIRUBIN,URINE NEGATIVE (NEGATIVE); CLARITY,URINE CLOUDY; COLOR,URINE YELLOW; GLUCOSE, URINE (UA) NEGATIVE (NEGATIVE); KETONES,URINE NEGATIVE (NEGATIVE); LEUKOCYTE ESTERASE ,URINE 2+ (NEGATIVE); NITRITE,URINE NEGATIVE (NEGATIVE); PH,URINE 6.5 (5-9); PROTEIN,URINE 2+ (NEGATIVE)
[2022-07-11 23:10] LABS: BACTERIA,URINE TRACE /HPF; WBC,URINE 25-50 /HPF
[2022-07-11 23:11] LABS: SQUAMOUS EPITHELIAL CELL,UR 0-2 /HPF
[2022-07-11] MEDS ORDERED: SULF1TAB38 PO (23:24)
[2022-07-11] MEDS ORDERED: TRIM/SULFAMETH 160/800 (SEPTRA DS) TAB PO ONE (23:30)
== END 2022-07-11 23:29 | disposition home or self-care (01) ==
LOC: EDUNIT# 22:42 → ER 22:43
DX: N39.0 Urinary tract infection, site not specified (principal); N41.9 Inflammatory disease of prostate, unspecified; Z28.310 Unvaccinated for COVID-19; Z79.2 Long term (current) use of antibiotics
CPT/HCPCS: 81000; 87088; 99283

== ENCOUNTER → 2022-10-01 | Outpatient (CLI) | payer MEDICARE, OTHER ==
[~2022-10-01] MED LIST changes: +SULF1TAB38 PO
[2022-10-01 16:15] LABS: BILIRUBIN,URINE NEGATIVE (NEGATIVE); CLARITY,URINE CLEAR; COLOR,URINE YELLOW; GLUCOSE, URINE (UA) NEGATIVE (NEGATIVE); KETONES,URINE NEGATIVE (NEGATIVE); LEUKOCYTE ESTERASE ,URINE 3+ (NEGATIVE); NITRITE,URINE NEGATIVE (NEGATIVE); PROTEIN,URINE NEGATIVE (NEGATIVE)
[2022-10-01 16:23] LABS: BACTERIA,URINE TRACE /HPF; SQUAMOUS EPITHELIAL CELL,UR RARE /HPF; WBC,URINE 25-50 /HPF
== END ==
LOC: LAB 16:00
PROVIDERS: ATTEND Urology
DX: R39.15 Urgency of urination (principal)
CPT/HCPCS: 81000; 87088

== ENCOUNTER → 2022-10-15 | Outpatient (CLI) | payer MEDICARE, OTHER ==
--- NOTE | 2022-10-15 16:42 | Diagnostic Imaging Report ---
EXAMINATION: Chest 2 view HISTORY: Chest wall pain COMPARISON: 04/14/2020 FINDINGS: There is mild left base atelectasis. Otherwise, the lungs are clear without edema or pneumonia. No pleural effusion or pneumothorax. Heart size is normal. IMPRESSION: 1. Mild atelectasis, otherwise clear lungs. Dictated by: Dictated on workstation # [id number]
== END ==
LOC: RAD 12:21
PROVIDERS: ATTEND Family Medicine
DX: J98.11 Atelectasis (principal)
CPT/HCPCS: 71046

== ENCOUNTER → 2023-02-15 | Outpatient (CLI) | payer MEDICARE, OTHER, SELFPAY ==
--- NOTE | 2023-02-15 16:09 | Diagnostic Imaging Report ---
EXAMINATION: CT calcium scoring without contrast. TECHNIQUE: Multiple contiguous axial images were obtained through the chest without the use of intravenous contrast for purposes of calcium scoring. All CT scans use one or more of the following dose optimizing techniques: automated exposure control, MA and/or KvP adjustment based on patient size and exam type or iterative reconstruction. HISTORY: Screening exam. COMPARISON: None available. FINDINGS: The calculated coronary artery calcium score is 965. There is a 4 mm left upper lobe nodule (image 1). There is atelectasis in the bases. Heart size is normal. No pericardial effusion. Aorta is normal in caliber. No lymphadenopathy is seen. There are no suspicious osseus lesions. IMPRESSION: 1. Calculated coronary artery calcium score of 965. 2. Left upper lobe 4 mm nodule. According to the Fleischner Society guidelines: In a low risk patient, no routine follow up is recommended. In a high risk patient, consider optional CT at 12 months. Dictated by: Dictated on workstation # [id number]
== END ==
LOC: RAD 14:45
PROVIDERS: ATTEND Family Medicine
DX: Z13.6 Encounter for screening for cardiovascular disorders (principal); R91.1 Solitary pulmonary nodule
CPT/HCPCS: 75571